=== PATIENT | female | born 1970 | race Caucasian/White ===

== ENCOUNTER 2019-06-15 16:52 | Emergency (ER) | payer OTHER ==
[2019-06-15 17:05] VITALS: TEMP 97.7; BMI 24.0
[2019-06-15] MEDS ORDERED: METOCLOPRAMIDE HCL INJECTION 10 MG/2 ML VIAL IVPUSH ONE (17:30)
[2019-06-15] MEDS ORDERED: SODIUM CHLORIDE 1,000 ML IV ONE (17:30)
[2019-06-15] MEDS ORDERED: METOCLOPRAMIDE HCL INJECTION 10 MG/2 ML VIAL ONE (17:45)
--- NOTE | 2019-06-15 18:26 | PDOC ---
Documentation entered by Iván Golden SCRIBE, acting as scribe for Ronnie Champagne MD. Ronnie Champagne MD: This documentation has been prepared by the [place] brown Elijah, SCRIBE, under my direction and personally reviewed by me in its entirety. I confirm that the documentation accurately reflects all work, treatment, procedures, and medical decision making performed by me. History of Present Illness - General Chief Complaint: Pain Stated Complaint: RIGHT FACIAL PAIN POSSIBLE SINUS AND HEAD PAIN Time Seen by Provider: 06/15/19 17:06 History Source: Patient Exam Limitations: No Limitations - History of Present Illness Initial Comments: 06/15/19 17:42 Patient is a 49 year old female with a significant past medical history of arthritis who presents to the ED with a migraine headache lasting for x2 days. Patient reports that the migraine feels like pressure and starts in the central of her head and radiates along the right side to the back of her neck. Patient associates x2 episodes of Vomiting with one of the episodes occurring in the ED , Neck Pain and congestion beginning this morning. Patient took 2 Excedrin for Migraines today but it did not alleviate the pain. Denies changes in vision, Head injury, fall, numbness, tingling, weakness, abdominal pain, fever, SOB, cough and back pain. Allergies:NKA Past History - Past Medical History Allergies/Adverse Reactions: Allergies Allergy/AdvReac Type Severity Reaction Status Date / Time No Known Allergies Allergy Verified 06/15/19 16:53 Home Medications: Ambulatory Orders Aspirin/Acetaminophen/Caffeine [Excedrin Extra Strength Caplet] 2 tab PO PRN Folic Acid 1 mg PO DAILY 06/15/19 Methotrexate Sodium [Methotrexate] 2.5 mg PO WEEKLY 06/15/19 COPD: No Other medical history: R A - Suicide/Smoking/Psychosocial Hx Smoking Status: No Smoking History: Never smoked Have you smoked in the past 12 months: No Number of Cigarettes Smoked Daily: 0 Information on smoking cessation initiated: No Hx Alcohol Use: No Drug/Substance Use Hx: No Substance Use Type: None Review of Systems - Review of Systems Comments:: 06/15/19 17:43 Constitutional - Pt denies Fever, Chills, weakness, HEENT: denies vision changes, sore throat Respiratory: Denies cough, sob, hemoptysis Cardiac: denies chest pain, palpitations, leg swelling Abd/GI: +nausea +vomiting denies abd pain, blood per rectum, melena, diarrhea : denies dysuria, frequency, discharge Musculskelatal - +Neck Pain denies joint swelling skin - denies bruising, erythema, rash neurological:+headache denies numbness, focal weakness, tingling, ataxia, weakness hematologic: denies anemia, easy bruising, easy bleeding *Physical Exam - Vital Signs Last Vital Signs Temp Pulse Resp BP Pulse Ox 97.7 F 70 16 114/45 L 100 06/15/19 16:53 06/15/19 16:53 06/15/19 16:53 06/15/19 16:53 06/15/19 16:53 - Physical Exam Comments: 06/15/19 17:30 GENERAL: The patient is awake, alert, and fully oriented, Nontoxic - in no acute distress. HEAD: Normocephalic, atraumatic. EYES: extraocular movements intact, sclera anicteric, conjunctiva clear. ENT: Normal voice, Dry mucous membranes, no nasal congestion, no tpp to frontal or maxillary sinuses NECK: Normal range of motion, supple without lymphadenopathy, JVD, or masses. LUNGS: Breath sounds equal, clear to auscultation bilaterally. No wheezes, no crackles, no rales. HEART: Regular rate and rhythm, normal S1 and S2 without murmur, rub or gallop. ABDOMEN: Soft, nontender, normoactive bowel sounds. No guarding, no rebound. No masses. EXTREMITIES: Normal range of motion, no edema. No clubbing or cyanosis. No cords, erythema, or tenderness. NEUROLOGICAL: No facial asymmetry, Normal speech, normal gait. PSYCH: Normal mood, normal affect. SKIN: Warm, Dry, normal turgor, no rashes or lesions noted. ED Treatment Course - Medications Given in the ED: ED Medications Discontinued Medications Generic Name Dose Route Start Last Admin Trade Name Freq PRN Reason Stop Dose Admin Metoclopramide HCl 10 mg 06/15/19 17:30 06/15/19 17:54 Reglan Injection - IVPUSH 06/15/19 17:31 10 mg ONCE ONE Administration Medical Decision Making - Medical Decision Making 06/15/19 18:00 suspect tension headache vs migraine no historical findings or signs suggestive of sah/ich will treat with fluids/reglan anticipate dc with mpd fu 06/15/19 18:43 pt feeeling improved will dc with pmd fu and supportive care at home I discussed the physical exam findings, ancillary test results and final diagnoses with the patient. I answered all of the patient's questions. The patient was satisfied with the care received and felt comfortable with the discharge plan and treatment plan. The patient will call their primary care physician within 24 hours to arrange follow-up and will return to the Emergency Department with any new, persistent or worsening symptoms. *DC/Admit/Observation/Transfer Diagnosis at time of Disposition: Tension headache - Discharge Dispostion Disposition: HOME Condition at time of disposition: Improved Decision to Admit order: No - Referrals Referrals: Luzma Soto [Non Staff, Medical] - - Patient Instructions Printed Discharge Instructions: DI for Headache Additional Instructions: Return to the emergency department immediately with ANY new, persistent or worsening symptoms including worsening headache, vision changes, numbness/ tingling/weakness, persistent nausea and vomiting or any other concerns. Make sure you are getting adaqute sleep and hydration. You MUST call and follow up with your doctorin 2-3 days for further evaluation of your symptoms. Your emergency department visit is not complete without a followup with your doctor for reevaluation. Results were discussed with you. Please make sure your doctor reviews the results of your emergency evaluation. Print Language: AZERI - Post Discharge Activity
[2019-06-15 19:05] VITALS: BP 115/53; PULSE 72
== END 2019-06-15 19:08 | disposition home or self-care (01) ==
LOC: FER 16:52
PROC: 3E033GC Introduction of Other Therapeutic Substance into Peripheral Vein, Percutaneous Approach (ICD-10-PCS; principal; 2019-06-15)
PROC: 3E0337Z Introduction of Electrolytic and Water Balance Substance into Peripheral Vein, Percutaneous Approach (ICD-10-PCS; 2019-06-15)
DX: G44.209 Tension-type headache, unspecified, not intractable (principal); M19.90 Unspecified osteoarthritis, unspecified site
CPT/HCPCS: 99281-25; J7030

== ENCOUNTER 2021-11-19 11:35 | Emergency (ER) | payer OTHER ==
[2021-11-19 11:47] VITALS: BP 118/55; PULSE 89; TEMP 98.8; BMI 25.7
== END 2021-11-19 12:19 | disposition home or self-care (01) ==
LOC: FER 11:35
DX: H60.92 Unspecified otitis externa, left ear (principal)
CPT/HCPCS: 99283-25